=== PATIENT | female | born 1935 | race Caucasian/White ===

== ENCOUNTER 2017-12-05 19:38 | Inpatient (IN) | payer MEDICARE, BC ==
[~2017-12-05] VITALS: Ht 160 cm; Wt 76.4 kg
--- NOTE | 2017-12-05 19:40 | NUR ---
RECEIVED VIA EMS. NON SYNCOPAL FALL, R HIP PAIN.
--- NOTE | 2017-12-05 20:04 | NUR ---
PORT XRAY AT BEDSIDE.
--- NOTE | 2017-12-05 20:23 | NUR ---
SPOUSE AT BEDSIDE.
[2017-12-05 21:15] LABS: HEMATOCRIT 42.6 % (37.0-47.0); HEMOGLOBIN 14.4 g/dl (12.0-16.0); MEAN CELL VOLUME 90.8 fL CALC (80.0-100.0); MEAN CORPUSCULAR HGB 30.7 pG CALC (26.0-32.0); MEAN CORPUSCULAR HGB CONC 33.8 g/L CALC (32.0-36.0); NEUT# 9.47 thou/uL (2.00-7.15); RED BLOOD COUNT 4.69 mill/uL (4.20-5.60); RED CELL DISTRI WIDTH 12.7 % (11.5-15.5)
--- NOTE | 2017-12-05 21:18 | NUR ---
PT TO CT.
[2017-12-05 21:30] LABS: ALBUMIN 4.5 g/dL (3.2-5.0); ALKALINE PHOSPHATASE 76 u/l (38-126); ANION GAP 16 (6-22 (CALC)); BILIRUBIN, TOTAL 0.3 mg/dL (0.0-1.4); BUN 16 mg/dL (8-23); BUN/CREATININE RATIO 20 (12-20 (CALC)); CARBON DIOXIDE 26 mmol/l (22-30); CHLORIDE 107 mmol/l (95-108); CREATININE 0.8 mg/dL (0.5-1.0); GFR > 60 ML/MIN (>=60 (CALC)); GFR FOR AFR.AMER. > 60 ML/MIN (>=60 (CALC)); POTASSIUM 3.9 mmol/l (3.5-5.1); SGOT/AST 23 u/l (9-36); SGPT/ALT 28 u/l (11-66); SODIUM 145 mmol/l (137-146); TOTAL PROTEIN 7.7 g/dL (6.3-8.2)
--- NOTE | 2017-12-05 21:33 | NUR ---
RETURNED FROM CT.
--- NOTE | 2017-12-05 21:34 | NUR ---
PORT XRAY AT BEDSIDE.
[2017-12-05] MEDS ORDERED: NOVOLIN N100 UNIT/1 (22:06)
--- NOTE | 2017-12-05 22:33 | NUR ---
DR ROMO AT BEDSIDE, INFORMED OF ADM.
--- NOTE | 2017-12-05 22:45 | NUR ---
#16 GAINES CATH INSERTED BY PAM GUILLORY.
[2017-12-05 23:01] LABS: MYOGLOBIN 60 ng/mL (0 - 62)
[2017-12-05 23:04] LABS: URINE BILIRUBIN - DIPSTICK NEGATIVE (NEGATIVE); URINE BLOOD DIPSTICK SMALL (NEGATIVE); URINE COLOR YELLOW; URINE GLUCOSE - DIPSTICK 100 mg/dL (NEGATIVE); URINE KETONE NEGATIVE (NEGATIVE); URINE LEUK ESTERASE NEGATIVE (NEGATIVE); URINE NITRITE - DIPSTICK NEGATIVE (Negative); URINE PH 6.5 (4.5-8.0); URINE PROTEIN - DIPSTICK NEGATIVE (NEG-TRACE); URINE SPECIFIC GRAVITY 1.015; URINE UROBILINOGEN - DIPSTICK 0.2 E.U./dL (0.2)
[2017-12-05 23:05] LABS: URINE CLARITY CLEAR
--- NOTE | 2017-12-05 23:06 | NUR ---
KEEP PT NPO AT THIS TIME PER ANESTH.
[2017-12-05 23:20] LABS: URINE BACTERIA FEW hpf; URINE HYALINE CAST FEW lpf (NONE-RARE); URINE MUCUS MODERATE hpf (NONE-FEW); URINE SQUAMOUS EPITHELIAL CELL FEW EPI/hpf (0-FEW); URINE WBC 0-2 WBC/hpf (0-5)
--- NOTE | 2017-12-05 23:27 | NUR ---
REPORT CALLED TO [facility].
--- NOTE | 2017-12-05 23:30 | NUR ---
PT C/O INTERM SPASM TYPE PAIN. MEDICATED PRIOR TO MOVE TO FLOOR.
--- NOTE | 2017-12-05 23:37 | NUR ---
PT TO RM 260 WITH RN.
--- NOTE | 2017-12-05 23:45 | NUR ---
PT TRANSPORTED TO FLOOR IN STABLE CONDITION VIA STRETCHER ACCOMPANIED BY JOCELINERN;PT TRANSFERRED TO BED WITH 3 PERSON ASSIST;PT ORIENTED TO ROOM AND CALL LIGHT SYSTEM;A&O X3;WT AND VS OBTAINED BY GILES MALHOTRA;PT REPORTS FALLING OVER HER FEET AT HOME WHILE IN THE YARD;ASSESSMENT COMPLETED;RESPIRATIONS EVEN AND UNLABORED ON RA;CLEAR LUNG SOUNDS NOTED;RIGHT HIP TENDER TO TOUCH RATING PAIN 8/10 ON THE PAIN SCALE;PT MEDICATED PRIOR TO TRANSPORT;PT EDUCATED ON PAIN MEDICATION SCHEDULE AND REPORTING;STRONG PEDAL PULSES BILAT;SCD PLACED TO LEFT LEG;ABDOMEN SOFT UPON PALPATION;PERRLA;EMS #22G TO LEFT HAND FLUSHED,PATENT AND STARTED TO NS @ 150ML/HR;PT RE-EDUCATED ON NPO DIET STATUS,TOOTHETTES PROVIDED;LAST BM 12/05/17;I.S. PLACED AT BEDSIDE AND GOAL SET TO 1500,PT EDUCATED ON USING 10X PER HR WHILE AWAKE;GAINES CATHETER PATENT,HANGING TO GRAVITY DRAINING CLEAR/YELLOW URINE;LEG STRAP IN PLACE;ALL SAFETY PRECAUTIONS REINFORCED;PT VOICES NO OTHER NEEDS AT THIS TIME AND IS ENCOURAGED TO CALL FOR ASSISTANCE IF NEEDED;BED IN LOWEST POSITION WITH CALL LIGHT IN REACH;WILL CONTINUE TO MONITOR
[2017-12-06 00:05] VITALS: BP 141/86
--- NOTE | 2017-12-06 00:30 | NUR ---
NEW ORDERS RECEIVED FROM
[2017-12-06 04:10] VITALS: BP 135/83
--- NOTE | 2017-12-06 04:20 | NUR ---
VS BEING OBTAIN BY GILES MALHOTRA;PT COMPLAINS OF RIGHT HIP PAIN RATING 5/10 ON THE PAIN SCALE AND REQUESTS PAIN MEDICATION;PT MEDICATED WITH PRN MORPHINE 2MG IVP;IV FLUIDS INFUSING WELL TO LEFT HAND;GAINES PATENT DRAINING TO GRAVITY;PT DENIES ANY OTHER NEEDS AT THIS TIME;CALL LIGHT IN REACH;WILL CONTINUE TO MONITOR
[2017-12-06 08:15] VITALS: BP 151/71
--- NOTE | 2017-12-06 08:15 | NUR ---
ASSESSMENT IS COMPLTED: IV SITE IS FREE FROM REDNESS OR EDEMA. WEAK PEDAL PULSE ON THE R FOOT. BREATH SOUNDS ARE CLEAR, BILATERALLY. HR IS REG, ABD IS SOFT WITH ACTIVE BS.
--- NOTE | 2017-12-06 12:00 | NUR ---
PT IS RELAXING IN BED WITH NO DISTRESS NOTED. IV SITE IS FREE FROM REDNESS OR EDEMA.
--- NOTE | 2017-12-06 13:23 | NUR ---
PT HAS BEEN RESTING . IV SITE IS FREE FROM REDNESS OR EDEMA. CONTINUE TO OSBERVE AND MONITOR.
--- NOTE | 2017-12-06 13:29 | NUR ---
PT BEING TRANSPORTED TO OR VIA BED WITH STAFF.
--- NOTE | 2017-12-06 14:12 | NUR ---
SPOKE WITH PT'S DAUGHTER IN [place], WONDERING WHY HER MOTHER OR STEP FATHER DID NOT CALL WHEN SHE FELL. IV SITE IS FREE FROM REDNESS OR EDEMA.
--- NOTE | 2017-12-06 16:00 | NUR ---
PT REMAINS IN OR. THE OR TEAM CHANGED HER IV SITE TO LW #20 . PT TOLERATING WELL.
--- NOTE | 2017-12-06 16:32 | NUR ---
SPOKE WITH AMEENA GUILLORY IN OR. PT IS CURRENTLY IN THE BACK CAME IN AROUND 1500. INFORMED SPOUSE.
--- NOTE | 2017-12-06 16:57 | NUR ---
SPOKE WITH THE DAUGHTER IN [place]. AND INFORMED THAT PT IS CURRENTLY STILL IN SURGERY,
--- NOTE | 2017-12-06 17:40 | NUR ---
RECEIVED A CALL FROM OR WILL BRING PT UP SOON THE XRAY IS COMPLETED. INFORMED SPOUSE
--- NOTE | 2017-12-06 17:55 | NUR ---
PT ARRIVED FROM OR VIA BED NO DISTRESS NOTED. PT IS AWAKE AND THEN DRIFTS TO SLEEP. IV SITE IS FREE FROM REDNESS OR EDEMA. SPOUSE IN THE ROOM. CONTINUE TO OSBERVE AND MONITOR.
[2017-12-06 18:00] VITALS: BP 143/59
--- NOTE | 2017-12-06 18:35 | NUR ---
PT IS RELAXING IN BED . GAINES INTACT DRAINING CLEAR YELLOW URINE.,
--- NOTE | 2017-12-06 19:00 | NUR ---
SPOKE WITH THE SON TYRA FROM [place] INQUIRING ABOUT PT. GAVE CODE. HE IS AN ICU NURSE. WILL CHECK PRIOR TO WORK. INFORMED OF HOW WELL THE PT IS , RESTING, AND GAVE NUMBERS OF BP AND HRT RATE WELL THE O2 LEVEL. INQUIRED ABOUT THE REHABS IN TOWN EXPLAINED ONLY HAVE 1 AND THEN CASE MANAGEMENT WILL CHECK EVERYTHING WITH HER INSURANCE AND FIND OUT WHERE THEY WAMT TO GO. INFORMED ONCOMING NURSE.
--- NOTE | 2017-12-06 19:10 | NUR ---
REPORT RECEIVED FROM [facility];PT RESTING IN SUPINE POSITION;POC DISCUSSED;PT DENIES ANY PAIN OR DISCOMFORTS;FALL PRECAUTIONS IN PLACE WITH CALL LIGHT IN REACH;WILL CONTINUE TO MONITOR
--- NOTE | 2017-12-06 21:00 | NUR ---
PT APPEARS TO BE SLEEPING IN SUPINE POSITION;WOKE PT TO OBTAIN ASSESSMENT AND ADMINISTER SCHEDULED MEDICATION;PT A&O X3, BUT DROWSY;PT DENIES ANY PAIN TO RIGHT HIP AND IS RE-EDUCATED ON PAIN SCALE AND REPORTING;X2 DRESSINGS CDI TO RIGHT HIP,NO EDEMA NOTED;SCD PLACED ON LEFT LEG;GAINES CATHETER PATENT DRAINING CLEAR/YELLOW URINE,LEG STRAP IN PLACE;RESPIRATIONS EVEN AND UNLABORED ON 02 @ 2L VIA NC;I.S. AT BEDSIDE AND GOAL SET TO 1500;PT RE-EDUCATED ON USING 10X PER HOUR WHILE AKAKE;#22G TO LEFT WRIST INFUSING WELL;STRONG PEDAL PULSES BILAT;PERRLA;SAFETY PRECAUTIONS REINFORCED WITH BED IN THE LOWEST POSITION;PT ENCOURAGED TO CALL FOR ASSISTANCE IF NEEDED;CALL LIGHT IN REACH;WILL CONTINUE TO MONITOR
[2017-12-07 00:13] VITALS: BP 136/66
--- NOTE | 2017-12-07 00:15 | NUR ---
PT APPEARS TO BE SLEEPING IN SUPINE POSITION;NO S/S OF DISTRESS NOTED;RESPIRATIONS EVEN AND UNLABORED ON 02 @ 2L VIA NC;IV FLUIDS INFUSING WELL TO LW;FALL PRECAUTIONS IN PLACE WITH BED IN THE LOWEST POSITION;CALL LIGHT IN REACH;WILL CONTINUE TO MONITOR
--- NOTE | 2017-12-07 01:50 | NUR ---
PT COMPLAINS OF RIGHT HIP PAIN RATING 7/10 ON THE PAIN SCALE;PT VERY TEARY, MEDICATED WITH DILAUDID 1MG IVP;RE-POSITIONED IN BED WITH THE ASSISTANCE IF MYSELF AND GILES STRATTON;PT THEN ASKED FOR MORE PAIN MEDICATION;PT RE-EDUCATED ON PAIN MEDICATION SCHEDULED;FRESH WATER PROVIDED AND PT TOLERATED WELL;WILL CONTINUE TO MONITOR FOR EFFECTIVENESS
--- NOTE | 2017-12-07 05:05 | NUR ---
PT RESTING IN SUPINE POSITION COMPLAINING OF RIGHT HIP PAIN RATING 7/10 ON THE PAIN SCALE AND REQUESTING PAIN MEDICATION;PT MEDICATED WITH DILAUDID 1MG IVP;IV FLUIDS INFUSING WELL TO LW;I.S. AT BEDSIDE AND STRESSED THE IMPORTANCE OF USE;GAINES CATHETER PATENT DRAINING CLEAR/YELLOW URINE;SCD IN PLACE;FALL PRECAUTIONS IN PLACE WITH CALL LIGHT IN REACH;WILL CONTINUE TO MONITOR
[2017-12-07 05:42] VITALS: BP 167/77
[2017-12-07 05:45] LABS: ANION GAP 12 (6-22 (CALC)); BUN 11 mg/dL (8-23); BUN/CREATININE RATIO 16 (12-20 (CALC)); CARBON DIOXIDE 21 mmol/l (22-30); CHLORIDE 112 mmol/l (95-108); CREATININE 0.7 mg/dL (0.5-1.0); GFR > 60 ML/MIN (>=60 (CALC)); GFR FOR AFR.AMER. > 60 ML/MIN (>=60 (CALC)); HEMATOCRIT 34.3 % (37.0-47.0); HEMOGLOBIN 11.1 g/dl (12.0-16.0); MAGNESIUM 1.5 mg/dL (1.6-2.3); MEAN CORPUSCULAR HGB 30.7 pG CALC (26.0-32.0); MEAN CORPUSCULAR HGB CONC 32.4 g/L CALC (32.0-36.0); RED BLOOD COUNT 3.61 mill/uL (4.20-5.60); RED CELL DISTRI WIDTH 12.8 % (11.5-15.5); SODIUM 142 mmol/l (137-146)
[2017-12-07 08:00] VITALS: BP 135/66
--- NOTE | 2017-12-07 08:00 | NUR ---
ASSESSMENT IS COMPLETED, IV SITE IS FREE FROM REDNESS OR EDEMA, DRESSING ON R HIP IS CDI. SCD ON LEFT FOOT. PT C/O UNABLE TO MOVE. WEEPING,. BREATH SOUNDS ARE CLEAR, BILATERALLY, NO C/O SOB, HR IS REG,PULSES ARE STRONG ON LEFT FOOT AND WEAK ON RIGHT FOOT. GAINES IN PLACE DRAINING YELLOW URINE.
[2017-12-07 11:06] VITALS: BP 149/71
--- NOTE | 2017-12-07 12:00 | NUR ---
PT IS RELAXING IN BED WITH NO DISTRESS NOTED. IV SITE IS FREE FROM REDNESS OR EDEMA. FAMILY IN THE ROOM. CONTINUE TO OBSERVE AND MONITOR., HAD PT DO THE ISP ABLE TO GET UP TO 1500
[2017-12-07 15:00] VITALS: BP 140/66
--- NOTE | 2017-12-07 15:31 | NUR ---
ATTEMPTED PT EVALUATION AT 2:40PM. PT WAS UNABLE TO TOLERATE TO PARTICIPATE IN ANY ACTIVITY DUE TO SEVERE PAIN ON R HIP. PT THEN REQUESTED FOR PAIN MEDICATION. JAYLON ATTENDED TO PT IMMEDIATELY AND ADMINISTERED PAIN MEDS.
--- NOTE | 2017-12-07 16:00 | NUR ---
PT IS VISITING WITH FAMILY NO DISTRESS NOTED. P T HAS BEEN IN TO SEE PT, WITH FAMILY. ENCOURAGING PT TO MOVE ABLE TO GET HER ON THE SIDE OF THE BED, IV SITE IS FREE FROM REDNESS OR EDEMA. CONTINUE TO OBSERVDE AND MONITOR.
[2017-12-07 19:00] VITALS: BP 119/67
--- NOTE | 2017-12-07 19:20 | NUR ---
PT WOKE FOR ASSESSMENT. FAMILY AT BEDSIDE. RESP EVEN AND UNLABORED. NO DISTRESS NOTED. LUNGS CLEAR BILAT. TELE IN PLACE. ABD SOFT; HYPOACTIVE BOWEL SOUNDS NOTED. RIGHT HIP BANDAGES X2 CDI; NO REDNESS OR EDEMA NOTED. PEDAL PULSES PALPATED BILAT. IV LW PATENT; NO REDNESS OR EDEMA NOTED. GAINES PATENT; DRAINING YELLOW URINE; LEG STRAP IN PLACE. PT ENCORUAGED TO USE INCENTIVE SPIROMETER. FREQUENT ROUNDS MADE. SAFETY PRECAUTIONS REINFORCED. CALL LIGHT WITHIN REACH.
[2017-12-08] VITALS (8 sets, daily range): BP systolic 111–149; BP diastolic 63–79
--- NOTE | 2017-12-08 00:40 | NUR ---
PT WOKE AND REPOSITIONED. IS USE DEMONSTRATED. RESP EVEN AND UNLABORED. TELE IN PLACE. LIANA PATENT. CALL LIGHT WITHIN REACH.
--- NOTE | 2017-12-08 04:00 | NUR ---
TELE IN PLACE. RESP EVEN AND UNLABORED. IV PATENT. GAINES PATENT. ASSESSMENT UNCHANGED. CALL LIGHT WITHIN REACH.
--- NOTE | 2017-12-08 05:32 | NUR ---
PT WOKE FOR MORNING VITALS. PT DENIES ANY PAIN. PT REPOSITIONED. PT DEMONSTRATED USE OF IS. SAFETY PRECAUTIONS REINFORCED. CALL LIGHT WITHIN REACH.
[2017-12-08 06:13] LABS: HEMATOCRIT 32.6 % (37.0-47.0)
--- NOTE | 2017-12-08 06:21 | NUR ---
GAINES REMOVED PER ORDERS. PT DRESSING CDI. PT DENIES PAIN OR DISCOMFORT. CALL LIGHT WITHIN REACH.
--- NOTE | 2017-12-08 07:00 | NUR ---
SHIFT CHANGE REPORT FROM STEFANIA, PT AWAKE AND ALERT RESTING IN BED, DENIES PAIN AT THIS TIME, TELE MONITOR IN PLACE, IVF INFUSING, CALL MART IN REACH, FAMILY MEMBER IN ROOM.
--- NOTE | 2017-12-08 10:07 | NUR ---
PATIENT STATES SHE IS FEELING BETTER TODAY. SUPINE TO SIT WITH MAX A OF 3 DUE TO PATIENT RESISTANT TO SITTING UP. SIT TO STAND WITH MOD A TO RW. ABLE TO AMB 2 FEET TO CHAIR WITH MIN A OF 2, ONLY ABLE TO SHIMMY LEFT FOOT AND ABLE TO ADVANCE RIGHT FORWARD. REQUIRES CONSTANT V.C.'S FOR SAFETY. STAND TO SIT WITH T.C.'S FOR HAND PLACEMENT. PATIENT UP IN CHAIR RECLINED, FAMILY PRESENT, CALL MART AND TRAY TABLE IN REACH. PATIENT EXPRESSED PAIN INITIALLY UPON STANDING BUT NONE FOLLOWING AMB.
--- NOTE | 2017-12-08 10:52 | NUR ---
BOWEN FROM ED JUST REPORTED HR IN 140'S, PT DOING BREATHING EXERCISE AT THIS TIME WITH IS BUT WILL CONTINUE TO MONITOR AND INFORM MEDICAL TEAM.
--- NOTE | 2017-12-08 11:14 | NUR ---
PRINTED CIRCUIT BOARD PANELS PLATER NOTIFIED OF CONDITION, ASSESSED PT AND WROTE ORDERS.
[2017-12-08 11:49] LABS: ANION GAP 13 (6-22 (CALC)); BUN 9 mg/dL (8-23); BUN/CREATININE RATIO 12 (12-20 (CALC)); CARBON DIOXIDE 23 mmol/l (22-30); CHLORIDE 107 mmol/l (95-108); CREATININE 0.7 mg/dL (0.5-1.0); GFR > 60 ML/MIN (>=60 (CALC)); GFR FOR AFR.AMER. > 60 ML/MIN (>=60 (CALC)); MAGNESIUM 1.7 mg/dL (1.6-2.3); POTASSIUM 3.8 mmol/l (3.5-5.1); SODIUM 139 mmol/l (137-146)
--- NOTE | 2017-12-08 13:26 | NUR ---
PHYSICAL THERAPIST GOT PT OOB THIS AM AND SAT HET IN RECLINER, STAFF JUST GOT HER UP TO BSC WITH MAX ASSIST AND SHE IS NOT TOLERATING TRANSFER WELL AND C/O SEVERE PAIN EVEN THOUGH PRE-MEDICATED FOR TRANSFER, WILL CONTINUE TO MONITOR, CALL MART IN REACH.
--- NOTE | 2017-12-08 15:35 | NUR ---
Patient feels okay. She feels pain when she moves out of bed mainly in her hip. c
--- NOTE | 2017-12-08 16:03 | NUR ---
PATIENT IS UP ON BSC, BUT UNABLE TO URINATE. REQUIRED MAX A FOR SIT TO STAND AT RW, DIFFICULTY WITH HAND PLACEMENT DUE TO PAIN. TOOK 2 ATTEMPTS FOR STANDING. BED UNLOCKED AND MOVED CLOSER TO PATIENT FOR SAFETY. ONCE STANDING ABLE TO CONT GAIT TRAINING FOR TURN 90 DEGREES WITH SIGNIFICANT PAIN. MIN A OF 2 FOR STAND TO SIT FOR SAFETY. SIT TO SUPINE WITH MAX A OF 2. PATIENT REQUESTING PAIN MEDS AND IN TEARS WITH PAIN FOLLOWING TX ABOVE. DISCUSSED WITH PHYSICIAN INTENSIVIST PATIENT PRESENTS MORE LIKE AN ACUTE FX WITH PAIN LEVEL.
--- NOTE | 2017-12-08 20:00 | NUR ---
PT RESTING IN BED, NO SIGNS OF DISTRESS NOTED, RESP EVEN AND UNLABORED. ALERT AND ORIENTED X3 BUT IS SOMEWHAT FORGETFUL AT TIMES. DISCUSSED POC WITH VISITORES AND PT, ALL IN AGREEMENT. PT MEDICATED FOR PAIN PRIOR TO REPOSITIONING. R HIP INCISION SITE DRESSINGS CDI, NO S/S OF INFECTION. ASSESSMENT COMPLETED AT THIS TIME. SCD TO LLE. EDUCATED ON THE USE AND RATIONALE FOR INCENTIVE SPIROMETER. CALL LIGHT IN REACH.CONTINUE TO MONITOR.
--- NOTE | 2017-12-09 | NUR ---
PT RESTING IN BED C/O PAIN AFTER BEING TAKEN OFF OF BED JONES. PERCOCET 1 TAB GIVEN. VISITORS AT BEDSIDE. CALL LIGHT IN REACH,CONTINUE TO MONITOR.
--- NOTE | 2017-12-09 04:03 | NUR ---
ASSISTED OFF BED JONES, PT C/O PAIN 08/11. DILAUDID GIVEN. CALL LIGHT IN REACH,CONTINUE TO MONITOR.
[2017-12-09 04:15] VITALS: BP 144/69
[2017-12-09 04:49] LABS: HEMATOCRIT 33.2 % (37.0-47.0); HEMOGLOBIN 11.2 g/dl (12.0-16.0); IMMATURE GRANULOCYTES 0.3 % (0.0-1.0); MEAN CELL VOLUME 92.5 fL CALC (80.0-100.0); MEAN CORPUSCULAR HGB 31.2 pG CALC (26.0-32.0); MEAN CORPUSCULAR HGB CONC 33.7 g/L CALC (32.0-36.0); NEUT# 7.12 thou/uL (2.00-7.15); RED BLOOD COUNT 3.59 mill/uL (4.20-5.60); RED CELL DISTRI WIDTH 12.7 % (11.5-15.5)
[2017-12-09 04:58] LABS: ANION GAP 14 (6-22 (CALC)); BUN 10 mg/dL (8-23); BUN/CREATININE RATIO 14 (12-20 (CALC)); CARBON DIOXIDE 25 mmol/l (22-30); CHLORIDE 106 mmol/l (95-108); CREATININE 0.7 mg/dL (0.5-1.0); GFR > 60 ML/MIN (>=60 (CALC)); GFR FOR AFR.AMER. > 60 ML/MIN (>=60 (CALC)); MAGNESIUM 1.7 mg/dL (1.6-2.3); POTASSIUM 3.9 mmol/l (3.5-5.1); SODIUM 141 mmol/l (137-146)
--- NOTE | 2017-12-09 08:00 | NUR ---
ASSESSMENT IS COMPLETED: PT WAS ON THE BED JONES PRIOR TO ASSESSMENT. IV SITE IS FREE FROM REDNESS OR EDEMA. DRESSING ON R HIP IS CDI. TELE MONIOR IN PLACE. FAMILY IN THE ROOM. BREATH SOUNDS ARE CLEAR BILATERALLY. HR IS REG, PULSES ARE STRONGER TODAY. CONTINUE TO OSBERVE AND MONITOR.
[2017-12-09 08:50] VITALS: BP 176/86
--- NOTE | 2017-12-09 12:01 | NUR ---
PT IS SITTING IN THE RECLYNER , FAMILY IN THE ROOM. IV SITE IS FREE FROM REDNESS OR EDEMA. PT REQUESTING PAIN MEDICATION , INFORMED IT WILL BE ANOTHER 45MINUTES BEFORE ANY PAIN MEDICATION CAN BE GIVEN. VERBALIZED UNDERSTANDING,
[2017-12-09 12:46] VITALS: BP 96/52
--- NOTE | 2017-12-09 14:42 | NUR ---
Pt. seen this AM for functional activity of transfer training and gait training. Discussed treatment plan, pt. in agreement to proceed with treatment. Gait belt and non skid socks applied. Pt. instructed on supine to sit to stand to RW. Supine to sit with mod. assist x2 for upper trunk support and assistance for advancing right LE to edge of bed. Sit to stand x2 attempts with cues for UE push off from bed and mod. assist x2. Once standing patient shuffled steps using RW and CGA x2 to BSC. Sit to stand from BSC x2 attempts with continual verbal/tactile cues, pericare provided by SHIPPING SPECIALIST. Pt. then ambulated x5 feet using RW and CGA x2 to recliner, tactile cues needed to advance right LE of which she appeared to be minimally weight bearing on. Stand to sit onto recliner with CGA x1, verbal cues for scooting back in recliner. LE's elevated, pillows applied to offload heels, call light reviewed and left within reach. Pt. reported feeling tired after treatment. Pt. left resting comfortably in recliner without questions or concerns.
--- NOTE | 2017-12-09 16:00 | NUR ---
PT HS BEEN RELAXING IN BED , ENCOURAGING PT TO GET UP TO THE BSC. EXPLAINED TO FAMILY THAT SHE WILL BE BETTER IF SHE GETS UP THE BEDPAN IS NOT ALWAYS THE BEST.
[2017-12-09 16:23] VITALS: BP 130/62
--- NOTE | 2017-12-09 16:30 | NUR ---
Patient feels fine laying down. Pt improved since yesterday but still has pain when moving out of bed. Pt denied any side effects pertaining to medications.c
--- NOTE | 2017-12-09 17:32 | NUR ---
PATIENT SEEN FOR P.M. TX. SHE WAS UP IN CHAIR WITH FAMILY PRESENT. DEMONSTRATED PROPER HAND PLACEMENT AND SIT TO STAND TRANSFER PRIOR TO SAME. SIT TO STAND TO RW WITH MOD A AND IMPROVED HAND PLACEMENT TODAY. AMB WITH CONSTANT V.C.'S AND INABILITY TO FWB ON RIGHT. SHE WILL SLIDE HER LEFT FOOT FORWARD/BACK AND LATERALLY BUT NOT LIFT IT OFF OF FLOOR. SHE IS ABLE TO ADVANCE RIGHT WITH SOME ELEVATION OFF OF FLOOR SLOWLY INITIALLY. AFTER A FEW STEPS SHE WOULD JUST SLIDE IT. REQUIRED CGA OF 2 AND MUCH ENCOURAGEMENT, BUT ABLE TO AMB 3 FEET FORWARD AND THEN TURM AND BACK UP TO BED. STAND TO SIT WITH V.C.'S AND TACTILE CUES AT HANDS. MAX A FOR SIT TO SUPINE. PATIENT EXPRESSED PAIN, BUT DID NOT CRY AND EVEN SMILED DURING TX TODAY. CONT BID.
--- NOTE | 2017-12-09 18:30 | NUR ---
PT TRANSPORTED VIA STRETCHER ACCOMPANIED BY STAFF FOR THE ECHO. TOLERATED TRANSFER WELL.
--- NOTE | 2017-12-09 19:09 | NUR ---
SPOKE WITH FAMILY FROM [place], : UPDATE ON HISTORY: PT HAS ARTHRITIS, BESIDES ,HTN, DIABETES, CHICKEN POX A CHILD, AND HAD NERVOUS BREAK DOWN WHEN SHE WAS YOUNG. SHE HAS A N ABDOMINAL ANEUYSMN,, HAD A BLADDER TUCK, GALLBLADDER, CHOLEY, STONES IN THE DUCTS, ADN PACREATITIS. INFORMED VÍCTOR OXYGEN EQUIPMENT AIDE DUE TO POSSIBLE BLOOD THINNERS FAMILY WAS CONCERNED.
--- NOTE | 2017-12-09 19:26 | NUR ---
RETURNED FROM RADIOLOGY AFTER ECHO VIA STRETCHER, TRANSFERRED TO BED WITH ASSISTANCE X4, AFTER TRANSFERRED TO BED PT STATES SHE HAS THE URGE TO VOID. OOB TO BSC WITH MAX ASSISTANCE X3, VERY SLOW GAIT AND YELLING OUT IN PAIN, ONCE SITTING ON COMMODE HANNAH GRAVES PROVIDED PT WITH PERCOCET 2TAB. TWO FAMILY MEMBERS AT HER SIDE.
[2017-12-10 00:10] VITALS: BP 119/71
--- NOTE | 2017-12-10 00:35 | NUR ---
PERCOCET PROVIDED FOR RIGHT HIP PAIN 06/11.
[2017-12-10 04:00] VITALS: BP 142/69
[2017-12-10 05:20] LABS: HEMATOCRIT 33.1 % (37.0-47.0)
[2017-12-10 05:37] LABS: ANION GAP 13 (6-22 (CALC)); BUN 11 mg/dL (8-23); BUN/CREATININE RATIO 16 (12-20 (CALC)); CARBON DIOXIDE 26 mmol/l (22-30); CHLORIDE 107 mmol/l (95-108); CREATININE 0.7 mg/dL (0.5-1.0); GFR > 60 ML/MIN (>=60 (CALC)); GFR FOR AFR.AMER. > 60 ML/MIN (>=60 (CALC)); MAGNESIUM 1.7 mg/dL (1.6-2.3); POTASSIUM 3.6 mmol/l (3.5-5.1); SODIUM 142 mmol/l (137-146)
--- NOTE | 2017-12-10 06:10 | NUR ---
MEDICATED WITH PERCOCET FOR C/O RIGHT HIP PAIN 06/11.
--- NOTE | 2017-12-10 07:55 | NUR ---
PT'S ASSESSMENT IS COMPLETED: IV SITE CAME OUT. PT IS RELAXING IN BED AND TALKING WITH FAMILY. SCD IN PLACE. CONTINUE TO OBSERVE AND MONITOR.
--- NOTE | 2017-12-10 10:00 | NUR ---
PATIENT JUST FINISHING BREAKFAST. REVIEWED STEPS FOR SUPINE TO SIT WITH PATIENT PRIOR TO TRANSFER. PATIET ABLE TO ASSIST WITH LIFTING R LE UP AND TOWARDS MIDLINE WITH WINDOW AND SIDING CRAFTSMAN TO PULL TO SIT. IMPROVED MOBILITY WITH TURNING TO EDGE OF BED. SIT TO STAND WITH MIN A TO RW AND GT X 2 WBAT R LE. ENCOURAGED TO LIFT LEFT FOOT FOR INCREASED WB'G TOLERANCE ON R LE. INCREASED STEP LENGTH WITH EACH LEG TODAY. C/O PAIN WITH R WB'G, BUT TOLERATED AMB 6 FEET FORWARD WELL TODAY WITH LIGHT CGA AND ASSIST FOR ADVANCING WALKER AND V.C.'S FOR STEP SEQUENCING. CHAIR BROUGHT TO PATIENT FOR STAND TO SIT. PATIENT ABLE TO SCOOT BACK IN CHAIR INDEP. CALL MART AND TRAY TABLE IN REACH. CONT BID.
[2017-12-10 11:00] VITALS: BP 107/51
[2017-12-10] MEDS ORDERED: ALPRAZOLAM0.25 MG PO (11:16)
[2017-12-10] MEDS ORDERED: ELIQUIS5 MG PO (11:16)
[2017-12-10] MEDS ORDERED: LEVEMIR100 UNIT/M SC (11:16)
[2017-12-10] MEDS ORDERED: PERCOCET 10/31 COMBO PO (11:16)
[2017-12-10] MEDS ORDERED: SURFAK240 MG/CAP PO (11:16)
[2017-12-10] MEDS ORDERED: LOPRESSOR25 MG PO (11:16)
--- NOTE | 2017-12-10 13:17 | NUR ---
PT CONVERTED TO SR AT 0500 THIS AM. CURRENTLY AT [id number]. CONTINUE TO OBSERVE AND MONITOR.
--- NOTE | 2017-12-10 13:41 | NUR ---
Spoke to pt about meds for discharge education. Explained purpose of new meds and new insulin. Pt verbalized understanding but still seemed confused. Pt stated she had no questions or concerns at this time.
--- NOTE | 2017-12-10 14:35 | NUR ---
PT WAS SEEN SITTING IN THE RECLINER. REQUESTED TO USE THE BEDSIDE COMMODE. PT WAS THEN ASSISTED TO STAND UP FROM SITTING WITH MIN A. [place] [facility], MIN A AND CONSTANT CUEING. PT MOVED IN A VERY SLOW PACE AND WAS HAVING GREAT DEAL OF DIFFICULTY PICKING BOTH FEET OFF THE FLOOR. PT WAS THEN ASSISTED TO STAND UP AND WALK TOWARDS BED WITH RW, MIN A AND CONSTANT VERBAL CUEING PT TENDS TO TWIST/PIVOT ON R FOOT. PT SAT ON BED AND WITH MAX A IN LIFTING B LE UP TO BED THEN ASSUMED SUPINE POSITION. PT WAS LEFT WITH FAMILY IN THE ROOM. NO ADVERSE RXNS NOTED OR REPORTED AT THE END OF TX.
--- NOTE | 2017-12-10 16:00 | NUR ---
PT IS RELAXING IN BED GAVE PAINMEDICATION FOR THE TRIP. IV SITE WAS ALREADY DISCONTINEUD. CALLED AND SPOKE WITH NITIN GUILLORY AT [facility],
--- NOTE | 2017-12-10 16:00 | NUR ---
MICHELLE HERE TO TRANSPORT PT TO [facility].
--- NOTE | 2017-12-10 16:15 | NUR ---
Discharge instructions given. Patient verbalizes understanding of same. Discharged in stable condition via Wheelchair to *Other with *Other. All belongings sent with pt.FAMILY ALSO WILL FOLLOW
--- NOTE | 2017-12-10 16:16 | NUR ---
WHEN GIVING REPORT TO FACILITY, EXPLAINED THAT FAMILY WILL BE STAYING TO ASSIST PT AROUND THE CLOCK., NURSE SEEM SURPRISED.
== END 2017-12-10 15:55 | DRG 481 ==
LOC: ED 19:38 → ED-I 22:16 → ED 23:14 → MS2 23:15
PROVIDERS: Emergency Medicine; Nurse Practitioner Family; Orthopaedic Surgery; ADMIT Internal Medicine; ATTEND Internal Medicine
PROC: 0T9B70Z Drainage of Bladder with Drainage Device, Via Natural or Artificial Opening (ICD-10-PCS; 2017-12-05)
PROC: 0QH604Z Insertion of Internal Fixation Device into Right Upper Femur, Open Approach (ICD-10-PCS; principal; 2017-12-06)
DX: S72.144A Nondisplaced intertrochanteric fracture of right femur, initial encounter for closed fracture (principal); I48.92 Unspecified atrial flutter; D64.9 Anemia, unspecified; E83.42 Hypomagnesemia; I48.0 Paroxysmal atrial fibrillation; E11.9 Type 2 diabetes mellitus without complications; E66.9 Obesity, unspecified; G89.18 Other acute postprocedural pain; I71.4 Abdominal aortic aneurysm, without rupture; Z79.4 Long term (current) use of insulin; W19.XXXA Unspecified fall, initial encounter; Z68.29 Body mass index [BMI] 29.0-29.9, adult
CPT/HCPCS: J1650